=== PATIENT | female | born 1965 | race Caucasian/White ===

== ENCOUNTER → 2019-08-26 | Outpatient (CLI) | payer OTHER ==
[~2019-08-26] MED LIST: D3-501250 MCG PO; NAPROSYN500 MG PO
== END ==
LOC: SJCVCIMAG 06:28
DX: Z01.818 Encounter for other preprocedural examination (principal); I08.8 Other rheumatic multiple valve diseases; R94.31 Abnormal electrocardiogram [ECG] [EKG]

== ENCOUNTER 2019-08-28 07:48 | Day surgery (SDC) | payer OTHER ==
[2019-08-14 13:14] LABS: HEMATOCRIT 42.5 % (37.0-47.0); HEMOGLOBIN 14.1 gm/dL (12.0-15.0); MCH 29.1 pg (26.0-34.0); MCHC 33.2 g/dL (28.0-37.0); MCV 87.8 fL (80.0-100.0); RBC 4.84 mil/uL (4.20-5.00); WBC 7.5 thou/uL (4.0-11.0)
[2019-08-14 13:18] LABS: URINE BILIRUBIN NEGATIVE (Negative); URINE BLOOD 1+ (Negative); URINE CLARITY CLEAR; URINE COLOR YELLOW; URINE GLUCOSE-RANDOM* NEGATIVE (Negative); URINE KETONES NEGATIVE (Negative); URINE NITRITE-REFLEX NEGATIVE (Negative); URINE PROTEIN (DIPSTICK) NEGATIVE (Negative); URINE UROBILINOGEN 0.2 E.U./dl (0.2-1.0)
[2019-08-14 13:23] LABS: URINE LEUKOCYTES-REFLEX 1+ (Negative)
[2019-08-14 13:34] LABS: PROTIME 10.5 Seconds (9.3-11.4)
[2019-08-14 13:35] LABS: BACTERIA-REFLEX 1-9 Few /HPF (None Seen); CASTS None Seen /LPF (None Seen); CRYSTALS None Seen /LPF (None Seen); SQUAMOUS 0-3 Few /LPF (0-3); URINE RBC 0-2 Rare /HPF (0-2); URINE WBC-REFLEX 0-5 Rare /HPF (0-5)
[2019-08-14 13:48] LABS: ALBUMIN 4.2 g/dL (3.4-5.0); CALCIUM 9.4 mg/dL (8.5-10.1); CREATININE 0.6 mg/dL (0.6-1.0)
[2019-08-14 23:09] LABS: GLYCOHEMOGLOBIN (HGB A1C) 6.1 % (4.8-5.6)
[~2019-08-28] VITALS: Ht 162.6 cm; Wt 68.5 kg
--- NOTE | ~2019-08-28 | O ---
[facility] [place] [address] OPERATIVE REPORT Name: ROBERT GONZALEZ Room #: 150-12 [facility] M.R.#: [id number] Admission: 08/28/19 Attend Phys: Jesús Dang MD Discharge: Date of : 61 Report #: [id number] THIS REPORT FOR: cc: TIFFANY - Briana family physician/PCP TIFFANY - Briana family physician/PCP Jesús Dang MD ~ CC: RIGOBERTO MEDEROS [facility] physician/PCP Jesús Dang DATE OF SERVICE: 08/28/2019 PREOPERATIVE DIAGNOSIS: Left knee osteoarthritis. POSTOPERATIVE DIAGNOSIS: Left knee osteoarthritis. PROCEDURE: Left total knee arthroplasty using Navio robotic reference library assistant. SURGEON: Jesús Dang MD. NIPPLE MACHINE OPERATOR: Krista Navarro PA-C. INDICATIONS FOR NIPPLE MACHINE OPERATOR: Throughout the case, extensive retraction and manipulation of the knee was required. This was afforded to me by my reference library assistant. ANESTHESIA: LMA with an adductor canal block. IMPLANTS: [employer] size 5 Journey II BCS Oxinium femur, size 3 tibia, size 9 polyethylene and a size 32 patella. TOURNIQUET TIME: 54 minutes. ESTIMATED BLOOD LOSS: 25 mL. COMPLICATIONS: None. SPECIMENS: None. CONDITION UPON LEAVING THE OPERATING ROOM: Stable. INDICATIONS FOR PROCEDURE: The patient is a 53-year-old female with left knee osteoarthritis. She had failed conservative measures for this and after discussion with her, she elected for left total knee arthroplasty. DESCRIPTION OF PROCEDURE: Risks, benefits, alternatives, complications were discussed in detail with the patient including but not limited to risk of [facility] [address] [place] [address] OPERATIVE REPORT Name: ROBERT GONZALEZ Room #: 150-12 [facility] M.R.#: [id number] Admission: 08/28/19 Attend Phys: Jesús Dang MD Discharge: Date of : 61 Report #: [id number] anesthesia; risk of damage to nerves, arteries, blood vessels; risk for infection, bleeding; risk for continued knee pain, need for reoperation. Informed consent was obtained from the patient. Left knee was appropriately marked in the preoperative holding area. IV Ancef was given for preoperative antibiotics. She was brought to the operating room and placed in supine position on operating room table. LMA anesthesia was induced without complication. Tourniquet was placed on the left thigh. Left lower extremity was prepped and draped in normal sterile fashion. Timeout was performed properly identifying the patient and procedure as well as the instrumentation and implants. All in the operating room were in agreement. Left lower extremity was exsanguinated, tourniquet was inflated. Tourniquet time was 54 minutes. Standard midline approach to the knee was made with 10 blade through the skin. Dissection was taken down sharply to the fascia and deep flaps were developed medially and laterally. Fresh 10 blade was used to make a medial parapatellar arthrotomy and the knee was inspected. There was severe tricompartmental osteoarthritis. ACL and PCL were removed sharply. Reference pins were placed in the femur and the tibia and the knee was then digitally mapped using the [employer] robotic system. Intraoperative plan was made and we sized the size 5 femur with a size 3 tibia and a 10 spacer. After acceptance of the intraoperative plan, the distal femoral cut was made with a Navio bur. The distal femoral cutting block was pinned in place and the chamfer cuts were made on the femur. Attention was then turned to the tibia. The remainder of the menisci removed with Bovie cautery. Tibial resection guide was pinned in place using the Navio for placement and tibial resection was made. After this, flexion and extension gaps were checked and found to have good balance in flexion and extension both medially and laterally. Tibia was sized, found to be a size 3. A size 3 tibial trial was placed, pinned and punched. A size 5 femoral trial was placed and the box cut was made. This was then trialed with a size 9 polyethylene. Knee was taken through range of motion, found to have a millimeter to a 1.5 mm of laxity medially and laterally throughout range of motion both digitally as well as manually. A 9 mm was resected from the posterior surface of the patella and a size 32 patellar trial button was placed. Knee was taken through range of motion, found to have good patellar tracking. After this, trial components were removed. Bony ends were thoroughly irrigated with normal saline. Final size 3 tibia, size 5 Journey II BCS Oxinium femur and a size 32 patella were cemented in place using standard cementation techniques. While the cement cured, a periarticular injection consisting of morphine, ropivacaine, epinephrine and Toradol was placed around the knee joint capsule. After the cement cured, the tourniquet was deflated. Hemostasis was obtained with Bovie cautery. Final size 9 polyethylene was placed. A gram of vancomycin was placed deep in the joint. Fascia was closed with 0 Vicryl. Skin was closed with 2-0 Vicryl, 3-0 Monocryl. Dermabond and a TSERING dressing were applied. The [address] [address] OPERATIVE REPORT Name: ROBERT GONZALEZ Room #: 150-12 [facility] M.R.#: [id number] Admission: 08/28/19 Attend Phys: Jesús Dang MD Discharge: Date of : 61 Report #: [id number] patient tolerated this procedure well and went to recovery room under care of anesthesia postoperatively. By: [id number] Jesús Dang MD /nt
[2019-08-28 09:26] VITALS: BP 119/68
[2019-08-28 13:23] VITALS: BP 113/58
[2019-08-28 13:59] VITALS: BP 113/58
--- NOTE | 2019-08-28 14:56 | NUR ---
PT AMDITTED RELATED TO LEFT TKR. CM REVIEWED CHART AND SPOKE WITH CARE TEAM. CM MET WITH PT AT BEDSIDE THIS DAY PT IS A&O X4. CM ROLE INTRODUCED. PT INDICATED SHE LIVES IN A HOUSE WITH HER SPOUSE WITH 3 STEPS TO ENTER AND 10 STEPS INSIDE. PT INIDCATED SHE WILL BE STAYING ON MAIN LEVEL UPON DC HOME. PT INDICATED SHE NEEDS A FWW FOR HOUSE USE. PT ISSUED ONE THROUGH [employer]. PT INDICATED SHE HAS AN OUTPATIENT APPOINTMENT SET UP AT [email or web address] ON SUNDAY. CARE TEAM INDICATED THAT PT IS MEDICALLY STABLE TO DC HOME THIS DAY. NO OTHER CM INTERVENTION INDICATED. CASE CLOSED.
[2019-08-28 16:00] VITALS: BP 121/63
--- NOTE | 2019-08-28 17:40 | NUR ---
PT RECEIVED AT NOON FROM REC ROOM AFTER LT TOTAL KNEE REPLACEMENT. PT ALERT AND IN NO PAIN. SOME C/O MILD QUEASINESS POST OP BUT WAS ABLE TO DRINK WATER AND EAT JELLO. SOME TIME LATER VOMITED CLEAR LIQUID. IV ZOFRAN GIVEN W/ SOME RELIEF. PT SLEPT SOME. IV FLUIDS INFUSING. CAME TO DESK STATING PT WANTING TO STAY OVER UNTIL TOMORROW BECAUSE OF NAUSEA. WILL CALL DR. DAVID TO NOTIFY.
[2019-08-28 19:20] VITALS: BP 130/55
--- NOTE | 2019-08-29 03:19 | NUR ---
ASSESSMENT COMPLETED.PT C/O PAIN ON HER R KNEE,MANAGED WITH MED.UP WITH ASSIST AND WALKER TO THE BR.PT COMPLETED TWO BAGS OF IV ABX.PT REFUSED TO CONT GETTING IVF.DRSG ON HER R KNEE,C/D/I.POLAR PACK,SCD AND JOSSELINE HOSE IN PLACE.PT LOOKING FORWARD TO BE DC LATER IN THE DAY.FALL PRECAUTIONS IN PLACE,CALL LIGHT WITHIN REACH.
[2019-08-29 04:20] VITALS: BP 101/53
[2019-08-29 06:28] LABS: HEMOGLOBIN 11.6 gm/dL (12.0-15.0); MCH 29.2 pg (26.0-34.0); MCV 88.5 fL (80.0-100.0); RBC 3.96 mil/uL (4.20-5.00); WBC 12.8 thou/uL (4.0-11.0)
[2019-08-29 07:38] VITALS: BP 111/52
[2019-08-29 11:38] VITALS: BP 111/52
--- NOTE | 2019-08-29 12:31 | NUR ---
CALLED DR WILSON OFFICE FOR DISCHSRGE ORDERS. VERBAL ORDER GIVEN STATING PATIENT IS OM TO DISCHARGE HOME WITH SPOUSE. DISCUSSED DC INSTRUCTIONS, VERBALIZED UNDERSTANDING OF ALL MATERIALS. PRESCRIPTIONS HAD BEEN GIVEN TO PATIENT PRIOR TO TODAY, AND HAVE ALREADY BEEN FILLED. DISCUSSED PRESCRIBED MEDICATIONS, ALL QUESTIONS ANSWERED. LEFT UNIT IN WHEELCHAIR, WITH TRANSPORTER AND SPOUSE. PRIVATE VEHICLE TO TAKE PATIENT HOME.
--- NOTE | 2019-08-29 15:29 | EKG ---
[facility] [place] [address] ELECTROCARDIOGRAM REPORT Name: ROBERT GONZALEZ Room #: [facility]P [facility]..#: [id number] Admission: 08/28/19 Attend Phys: Jesús Dang MD Discharge: 08/29/19 Date of : 61 Report #: [id number] THIS REPORT FOR: cc: TIFFANY - Briana family physician/PCP TIFFANY - Briana family physician/PCP Timbo Keating MD ~ THIS REPORT FOR: //name// [facility] Test Date: 2019-08-14 Test Time: 13:19:20 Pat Name: ROBERT GONZALEZ Department: Room: Gender: F Job Press Operator: earl metcalf : 1965 Requested By: Jesús Dang Order Number: [id number] MD: Timbo Keating Measurements Intervals [place] Rate: 68 P: 66 DE: 185 QRS: -53 QRSD: 151 T: 86 QT: 453 QTc: 482 Interpretive Statements Sinus rhythm Left bundle branch block No previous ECG available for comparison Electronically Signed On 08-14-2019 16:31:22 SWITCHBOARD CLERK by Timbo Keating [email or web address] <ELECTRONICALLY SIGNED> By: Timbo Keating MD 08/14/19 1631 1319 1319 Timbo Keating MD /EPI
== END 2019-08-29 11:59 | disposition home or self-care (01) ==
LOC: OR 07:48 → TBA 07:48 → OR 09:13 → 4S 13:13 → OR 13:14 → ENTRNSPT 08-29 11:58 → OR 08-29 11:59
PROVIDERS: Orthopaedic Surgery
DX: M17.12 Unilateral primary osteoarthritis, left knee (principal); M25.572 Pain in left ankle and joints of left foot; Z98.890 Other specified postprocedural states; Z79.899 Other long term (current) drug therapy
CPT/HCPCS: 10102; 50010; 50101; 50415; 50804; 51130; 51225; 51320; 52001; 52282; 53000; 53078; 54118; 55372; 56527; 56528; 57095; 57103; 57110; 57127; 57179; 62110; 62900; 70005

== ENCOUNTER 2019-10-10 06:59 | Day surgery (SDC) | payer OTHER ==
[~2019-10-10] VITALS: Ht 162.6 cm; Wt 66.2 kg
--- NOTE | ~2019-10-10 | O ---
[facility] [place] [address] OPERATIVE REPORT Name: ROBERT GONZALEZ Room #: 150-1 [facility] M.R.#: [id number] Admission: 10/10/19 Attend Phys: Jesús Dang MD Discharge: Date of : 61 Report #: [id number] THIS REPORT FOR: cc: TIFFANY - Briana family physician/PCP TIFFANY - Briana family physician/PCP Jesús Dang MD ~ CC: TIFFANY physician/PCP Jesús Dang DATE OF SERVICE: 10/10/2019 PREPROCEDURE DIAGNOSIS: Left total knee arthroplasty, arthrofibrosis. POSTOPERATIVE DIAGNOSIS: Left total knee arthroplasty, arthrofibrosis. PROCEDURE: Left knee manipulation under anesthesia. SURGEON: Jesús Dang M.D. GARBAGE COLLECTOR DRIVER: Krista Navarro PA-C. ANESTHESIA: LMA. IMPLANTS: None. COMPLICATIONS: None. ESTIMATED BLOOD LOSS: None. CONDITION UPON LEAVING THE OPERATING ROOM: Stable. INDICATIONS FOR PROCEDURE: The patient is a 53-year-old female who is about 6 weeks out from a left total knee arthroplasty. She developed significant arthrofibrosis and has plateaued with physical therapy. After discussion with her, she elected for left knee manipulation under anesthesia. DESCRIPTION OF PROCEDURE: Risks, benefits, alternatives, complications were discussed in detail with the patient including but not limited to risk of anesthesia, risk of failure of procedure, periprosthetic fracture, continued stiffness. Informed consent was obtained from the patient. Left knee was appropriately marked in the preoperative holding area. She was brought to the operating room and placed in the supine position on the operating room table. LMA anesthesia was induced without complication. Timeout was performed properly identifying the patient and procedure, all in the operating room were in agreement. The knee was then examined and she was shown to have passive range of motion from 15-50 degrees. The knee was then gently manipulated in extension [facility] [address] [place] [address] OPERATIVE REPORT Name: ROBERT GONZALEZ Room #: 150-1 [facility].#: [id number] Admission: 10/10/19 Attend Phys: Jesús Dang MD Discharge: Date of : 61 Report #: [id number] as well as doing patellar mobilization exercises. We then manipulated the knee in flexion with palpable and audible breakage of scar tissue. The final range of motion was from 5-130 degrees. Fluoroscopic imaging was brought in to verify that there was no periprosthetic fracture as was the case. She was then awoken from anesthesia and went to recovery room under care of Anesthesia postoperatively. By: [id number] Jesús Dang MD /nt
[~2019-10-10 06:59] MED LIST changes: +NEURONTIN 300300 M1 PO
[2019-10-10 07:55] VITALS: BP 125/71
[2019-10-10] MEDS ORDERED: NORCO 5-325 TA1 EAC1 PO (09:41)
[2019-10-10 09:47] VITALS: BP 125/71
[2019-10-10 09:56] VITALS: BP 125/71
== END 2019-10-10 10:30 | disposition home or self-care (01) ==
LOC: OR 06:59 → TBA 07:00 → OR 10:30
DX: M24.662 Ankylosis, left knee (principal); Z96.652 Presence of left artificial knee joint; Z98.890 Other specified postprocedural states; Z79.899 Other long term (current) drug therapy
CPT/HCPCS: 50010; 50101; 62110; 62900; 70005